=== PATIENT | female | born 1990 | race African-American/Black ===

== ENCOUNTER 2023-04-22 17:27 | Emergency (ER) | payer SELFPAY ==
[2023-04-22 19:38] LABS: #Eosinphils 0.8 10x3/uL (0.0-0.5); #Monocytes 0.5 10x3/uL (0.0-1.1); #Neutrophils 1.8 10x3/uL (1.5-8.4); %Basophils 0.8 % (0.0-2.0); %Eosinophils 15.3 % (0.0-6.0); %Lymphocytes 39.4 % (18.0-47.0); %Monocytes 10.4 % (0.0-10.0); %Neutrophils 33.9 % (40.0-75.0); Hematocrit 38.3 % (34.9-44.5); Hemoglobin 12.7 g/dL (12.0-15.5); Mean Corpuscular HGB CONC 33.2 g/dL (32.0-36.0); Mean Corpuscular Hemoglobin 28.3 pg (27.0-33.0); Mean Corpuscular Volume 85.5 fl (81.6-98.3); Mean Platelet Volume 9.9 fl (7.4-10.4); Platelet Count 230 10x3/uL (150-450); Red Blood Cell (RBC) Count 4.48 10x6/uL (3.90-5.03); White Blood Cell (WBC) Count 5.2 10x3/uL (3.5-10.5)
[2023-04-22 19:41] LABS: Bilirubin Neg (Negative); Blood, Urine Negative (Negative); Clarity Slightly Cloudy (Clear); Glucose, Urine (Dipstick) Normal (Negative); Ketone, Urine Negative (Negative); Leukocyte Negative (Negative); Nitrite Negative (Negative); Protein, Urine (Dipstick) 15 mg/dl (Neg-Trace); Specific Gravity, Urine 1.015 (1.005-1.030)
[2023-04-22 19:42] LABS: ALT (SGPT) 13 U/L (8-55); AST (SGOT) 15 U/L (5-34); Albumin 4.2 g/dL (3.5-5.0); Alkaline Phosphatase 50 U/L (40-110); Anion Gap 13 mmol/L (10-20); BUN (Urea Nitrogen) 11 mg/dL (7.0-18.7); Bilirubin, Total 0.3 mg/dL (0.2-1.2); CK (CPK) 83 U/L (29-168); Calc. Creatinine Clearance 0 mL/min (70-130); Carbon Dioxide 24 mmol/L (22-29); Chloride 107 mmol/L (98-107); Estimated GFR 104; Globulin 2.6 g/dL (2.4-3.5); Glucose 81 mg/dL (70-105); Potassium 3.8 mmol/L (3.5-5.1); Protein, Total 6.8 g/dL (6.0-8.3); Sodium 140 mmol/L (136-145)
[2023-04-22 19:48] LABS: Troponin I Less than 0.010 ng/mL (< 0.028)
[2023-04-22] MEDS ORDERED: Ketorolac Tromethamine 30 MG/ML VIAL ONE (19:49)
[2023-04-22 20:01] LABS: CAUTI Indications for Culture Dysuria,urgency,freq; RBC/HPF None Seen HPF (0-3)
[2023-04-22 20:02] LABS: Bacteria/HPF Rare-Few HPF (None Seen); Mucous/LPF 1+ LPF (<2+); WBC/HPF 0-3 HPF (0-3)
[2023-04-22 20:03] LABS: Urine Culture Reflex No No
== END 2023-04-22 21:45 | disposition home or self-care (01) ==
LOC: CSHERS 17:27
DX: R51.9 Headache, unspecified (principal)
CPT/HCPCS: 80053; 81001; 82550; 84484; 85025; 93005; 96374; J1885

== ENCOUNTER 2023-08-03 17:31 | Emergency (ER) | payer SELFPAY ==
[2023-08-03] MEDS ORDERED: Dexamethasone 10 MG/ML VIAL ONE (18:28)
[2023-08-03] MEDS ORDERED: predniSONE 20 MG TAB ONE (18:28)
[2023-08-03] MEDS ORDERED: Albuterol 2.5 MG/0.5 ML NEB ONE (18:29)
[2023-08-03] MEDS ORDERED: Ipratropium/Albuterol 3 ML NEB ONE (18:29)
[2023-08-03 19:18] LABS: SARS-CoV-2 NAA Rapid Test Not Detected (NotDetected)
== END 2023-08-03 18:54 | disposition home or self-care (01) ==
LOC: CSHERS 17:31
DX: R06.2 Wheezing (principal); R05.9 Cough, unspecified; Z20.822 Contact with and (suspected) exposure to COVID-19
CPT/HCPCS: 71045; J1100; J7512; J7611; J7620